=== PATIENT | female | born 1980 | race Caucasian/White ===

== ENCOUNTER 2016-08-06 11:00 | Day surgery (SDC) | payer OTHER ==
[2016-08-06] MEDS ORDERED: fentaNYL 100 MCG/2 ML INJ ONE (11:48)
[2016-08-06] MEDS ORDERED: PROPOFOL/EMULSION 500 MG/50 ML BOTTLE IV ONE (11:49)
[2016-08-06] MEDS ORDERED: LIDOCAINE 2% 5 ML SDV ONE (11:52)
[2016-08-06] MEDS ORDERED: ONDANSETRON 4 MG/2 ML VIAL ONE (11:52)
[2016-08-06] MEDS ORDERED: MIDAZOLAM 2 MG/2 ML VIAL ONE (11:54)
[2016-08-06] MEDS ORDERED: DOXYCYCLINE HYCLATE 100 MG CAP/TAB ONE (12:05)
[2016-08-06 12:15] LABS: % IMMATURE GRANULYOCYTES 0.3 % (0.0-1.1); ABSOLUTE IMMATURE GRANULOCYTES 0.02 10^3/uL (0.00-0.10); ADD DIFF? NO; ADD MORPH? NO; ADD SCAN? NO; ATYPICAL LYMPHOCYTE FLAG 30 (0-99); FRAGMENT RBC FLAG 0 (0-99); HEMATOCRIT 39.1 % (38.0-47.0); HEMOGLOBIN 13.5 g/dL (12.6-16.3); LEFT SHIFT FLG 0 (0-99); LIPEMIA HEMOLYSIS FLAG 90 (0-99); MEAN CELL HEMOGLOBIN 31.1 pg (27.9-34.1); MEAN CELL HEMOGLOBIN CONCENTR. 34.5 g/dL (32.4-36.7); MEAN CELL VOLUME 90.1 fL (81.5-99.8); MEAN PLATELET VOLUME 9.6 fL (8.7-11.7); PLATELET CLUMPS FLAG 30 (0-99); PLATELET COUNT 220 10^3/uL (150-400); RED BLOOD CELL COUNT 4.34 10^6/uL (4.18-5.33); RED CELL DISTRIBUTION WIDTH 13.2 % (11.5-15.2)
[2016-08-06] MEDS ORDERED: LR 1,000 ML IV SCH (12:30)
[2016-08-06] MEDS ORDERED: DOXYCYCLINE INJ 100 MG in NS 250 ML IV ONE (12:30)
[2016-08-06] MEDS ORDERED: IBUPROFEN 600 MG TAB PO ONE (14:00)
--- NOTE | 2016-08-06 20:21 | GOP ---
[f rep st] OPERATIVE REPORT DATE OF OPERATION: 08/06/2016 SURGEON: Dasia Leon MD ANESTHESIA: MAC sedation. ANESTHESIOLOGIST: Roc Wilburn MD. PREOPERATIVE DIAGNOSIS: Missed at 8 weeks' gestation. POSTOPERATIVE DIAGNOSIS: Missed at 8 weeks' gestation. PROCEDURE PERFORMED: Suction dilation and curettage. FINDINGS: SPECIMENS: Pathological specimen would be products of conception. ESTIMATED BLOOD LOSS: Less than 10 cc. INDICATIONS: The patient is a 36-year-old, 3, para 1-0-1-1, who presented for her new OB vis it on 08/04/2016 at 8-2/7 weeks' gestation by last menstrual period. On that evaluation, her ultraso und revealed a gestational sac with a small pole, no heart tones. This was confirmed on the by official ultrasound. The baby was size less than dates by 12 days. The patient had a ge stational yolk sac. No heart tones. The patient was diagnosed with missed , given opt ions of medical management versus surgical management versus expectant. She desired surgical managem ent with a suction dilation and curettage. She was consented for the procedure. She understood the risks and benefits. The risks including ble eding, infection, damage to the uterus, including possible risk of perforation, damage to other organ s if perforation were to occur, incomplete removal of all the tissue with need for repeat procedure o r spontaneous expulsion at the time. She understood these risks and benefits and agreed to proceed. DESCRIPTION OF PROCEDURE: The patient was taken to the operating room where she was given MAC sedati on without difficulty. She was prepped and draped in a dorsal lithotomy position. An open-sided spe culum was placed in the vagina, and a single-tooth tenaculum was used to grasp the anterior lip of th e cervix. The uterus sounded to 8 cm. The cervix was progressively dilated with V[place]la dilators to a #8-1/2. The #8 curved suction curette was then gently advanced from the cervix and advanced to the fundus, and tissue was obtained in several passages. The sharp curettage was then performed in a thuy ckwise fashion until a gritty texture was palpated throughout the entire endometrium. Final pass of the suction device again revealed a small area of bleeding, little tissue. The tenaculum was removed , and the speculum was removed. A transvaginal ultrasound was performed, and a normal endometrial st ripe was visualized. There were no retained products. The patient tolerated the procedure well. Sponge, lap, needle, and instrument counts were correct x2 . Patient went to the recovery room in good condition. /[id number]/MODL
== END 2016-08-06 14:34 | disposition home or self-care (01) ==
LOC: FOBOP 11:00
PROVIDERS: ATTEND Obstetrics & Gynecology
PROC: 10D17ZZ Extraction of Products of Conception, Retained, Via Natural or Artificial Opening (ICD-10-PCS; principal; 2016-08-06)
DX: O02.1 Missed abortion (principal)
CPT/HCPCS: J2250; J2405; J2704; J3010

== ENCOUNTER 2016-08-11 13:45 | Emergency (ER) | payer OTHER ==
[2016-08-11 13:49] VITALS: RESP 16; O2SAT 98
[2016-08-11] MEDS ORDERED: NS 1,000 ML IV ONE (15:05)
[2016-08-11] MEDS ORDERED: ONDANSETRON 4 MG/2 ML VIAL IVP ONE (15:05)
[2016-08-11 15:28] LABS: % IMMATURE GRANULYOCYTES 0.7 % (0.0-1.1); ABSOLUTE IMMATURE GRANULOCYTES 0.07 10^3/uL (0.00-0.10); ADD DIFF? NO; ADD MORPH? NO; ADD SCAN? NO; ATYPICAL LYMPHOCYTE FLAG 10 (0-99); FRAGMENT RBC FLAG 0 (0-99); HEMATOCRIT 44.7 % (38.0-47.0); HEMOGLOBIN 15.2 g/dL (12.6-16.3); LEFT SHIFT FLG 0 (0-99); LIPEMIA HEMOLYSIS FLAG 90 (0-99); MEAN CELL HEMOGLOBIN 31.2 pg (27.9-34.1); MEAN CELL VOLUME 91.8 fL (81.5-99.8); MEAN PLATELET VOLUME 9.6 fL (8.7-11.7); PLATELET CLUMPS FLAG 30 (0-99); PLATELET COUNT 272 10^3/uL (150-400); RED BLOOD CELL COUNT 4.87 10^6/uL (4.18-5.33); RED CELL DISTRIBUTION WIDTH 13.3 % (11.5-15.2)
[2016-08-11 15:33] LABS: ANION GAP 13 mEq/L (8-16); CALCIUM 9.2 mg/dL (8.5-10.4); CARBON DIOXIDE 24 mEq/l (22-31); CHLORIDE 104 mEq/L (97-110); CREATININE 0.8 mg/dL (0.6-1.0); GLOMERULAR FILTRATION RATE > 60; GLUCOSE 79 mg/dL (70-100); POTASSIUM 4.1 mEq/L (3.5-5.2); SODIUM 141 mEq/L (134-144)
--- NOTE | 2016-08-11 15:52 | EDPHY ---
H & P Time Seen by Provider: 08/11/16 14:55 HPI/ROS: CHIEF COMPLAINT: Abdominal pain HISTORY OF PRESENT ILLNESS: 36-year-old female presents to the emergency department by private vehicle complaining of right lower quadrant abdominal pain. The patient had a D and C on Tuesday, [address] Dasia Leon. The patient was doing well until 2 days ago started getting sharp pain in her right lower quadrant of her abdomen. This has been constant over last [address] Dasia Loen today and had a pelvic ultrasound as well as abdominal ultrasound which revealed a small known right ovarian cyst. She was sent to the emergency department for possible acute appendicitis. The patient has felt nauseous although no vomiting. No diarrhea. No fevers or chills. No urinary symptoms. The patient states that she is not . REVIEW OF SYSTEMS: Constitutional: No fever, no chills. Eyes: No double or blurry vision. ENT: No sore throat. Respiratory: No cough, no shortness of breath. Cardiac: No chest pain. Gastrointestinal: Abdominal pain as above. No vomiting or diarrhea. Genitourinary: No dysuria. Musculoskeletal: No neck or back pain. Skin: No rashes. Neurological: No headache. Past Medical/Surgical History: Ectopic , spontaneous miscarriage requiring D and C on Tuesday, August 06 Social History: and lives in [place]. 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 Smoking Status: Never smoked Physical Exam: General Appearance: Alert, no distress. Afebrile. Nontoxic appearing. Eyes: Pupils equal and round. Extraocular motions are all intact. ENT: Mouth: Mucous membranes moist. Respiratory: No wheezing, rhonchi, or rales, lungs are clear to auscultation. Cardiovascular: Regular rate and rhythm. Gastrointestinal: Abdomen is soft. She has tenderness with palpation in the right lower quadrant. She has some voluntary guarding. No rebound tenderness. Mild CVA tenderness on the right, none on the left. Neurological: Alert and oriented x 3, cranial nerves II through XII grossly intact Skin: Warm and dry, no rashes. Musculoskeletal: Nontender to palpate along the cervical, thoracic or lumbar spine. Neck is supple. Extremities: Full range of motion and no peripheral edema. Psychiatric: Patient is oriented X 3, there is no agitation. Constitutional: Initial Vital Signs Temperature (C) 36.8 C 08/11/16 13:47 Heart Rate 58 L 08/11/16 13:47 Respiratory Rate 16 08/11/16 13:47 Blood Pressure 104/70 08/11/16 13:47 O2 Sat (%) 98 08/11/16 13:47 O2 Delivery Mode Room Air Allergies/Adverse Reactions: erythromycin base [Erythromycin Base] Allergy (Verified 01/09/14 16:25) Home Medications: Medication Instructions Recorded Fish Oil 1 cap PO BID 01/09/14 Plus Multivitamin Tab 1 tab PO DAILY 01/09/14 Docusate Sodium [Colace 100 MG (*)] 100 mg PO BID 08/06/16 Medical Decision Making - Diagnostics Imaging: CT imaging of the abdomen pelvis reveals a normal appearing appendix. Moderate stool noted in the colon. No evidence of obstruction. No kidney injury noted. This is reported to me by Dr. Beaulieu. ED Course/Re-evaluation: 36-year-old female presents with abdominal pain and concerns about acute appendicitis. Laboratory studies were drawn which reveals white blood cell count of 9.85. Her chemistries are unremarkable. Her HCG is positive which is likely residual from her recent D and C. The patient states that she is not . The patient just came from Dr. Dasia Leon office and had a pelvic ultrasound. CT imaging of the abdomen and pelvis reveals normal appendix. Constipation otherwise normal. Patient was given IV Toradol with mild improvement. She is comfortable being discharged home. She was advised to return if she develops fever, vomiting or any other concerns. Differential Diagnosis: Including but not limited to acute appendicitis, urinary tract infection, pyelonephritis, kidney stone, retained products of conception - Data Points Laboratory Results: Laboratory Results 08/11/16 14:45 08/11/16 14:45 08/11/16 14:45 WBC 9.85 H 10^3/uL (3.80-9.50) RBC 4.87 10^6/uL (4.18-5.33) Hgb 15.2 g/dL (12.6-16.3) Hct 44.7 % (38.0-47.0) MCV 91.8 fL (81.5-99.8) MCH 31.2 pg (27.9-34.1) MCHC 34.0 g/dL (32.4-36.7) RDW 13.3 % (11.5-15.2) Plt Count 272 10^3/uL (150-400) MPV 9.6 fL (8.7-11.7) Neut % (Auto) 53.8 % (39.3-74.2) Lymph % (Auto) 37.9 % (15.0-45.0) [place] % (Auto) 5.8 % (4.5-13.0) Eos % (Auto) 1.1 % (0.6-7.6) Baso % (Auto) 0.7 % (0.3-1.7) Nucleat RBC Rel Count 0.0 % (0.0-0.2) Absolute Neuts (auto) 5.30 10^3/uL (1.70-6.50) Absolute Lymphs (auto) 3.73 H 10^3/uL (1.00-3.00) Absolute Monos (auto) 0.57 10^3/uL (0.30-0.80) Absolute Eos (auto) 0.11 10^3/uL (0.03-0.40) Absolute Basos (auto) 0.07 10^3/uL (0.02-0.10) Absolute Nucleated RBC 0.00 10^3/uL (0-0.01) Immature Gran % 0.7 % (0.0-1.1) Immature Gran # 0.07 10^3/uL (0.00-0.10) Sodium 141 mEq/L (134-144) Potassium 4.1 mEq/L (3.5-5.2) Chloride 104 mEq/L (97-110) Carbon Dioxide 24 mEq/l (22-31) Anion Gap 13 mEq/L (8-16) BUN 15 mg/dL (7-23) Creatinine 0.8 mg/dL (0.6-1.0) Estimated GFR > 60 Glucose 79 mg/dL (70-100) Calcium 9.2 mg/dL (8.5-10.4) Beta HCG, Qual POSITIVE Medications Given: Discontinued Medications Sodium Chloride (Ns) 1,000 mls @ 0 mls/hr IV ONCE ONE PRN Reason: Wide Open Stop: 08/11/16 15:06 Last Admin: 08/11/16 15:27 Dose: 1,000 mls Ketorolac Tromethamine (Toradol) 30 mg IVP EDNOW ONE Stop: 08/11/16 16:38 Last Admin: 08/11/16 16:49 Dose: 30 mg Ondansetron HCl (Zofran) 4 mg IVP EDNOW ONE Stop: 08/11/16 15:06 Last Admin: 08/11/16 15:28 Dose: 4 mg Departure - Departure Disposition: Home, Routine, Self-Care Clinical Impression: Abdominal pain Qualifiers: Abdominal location: right lower quadrant Qualifier Code: (R10.31) Right lower quadrant pain Condition: Good Instructions: Acute Abdominal Pain (ED) Additional Instructions: Abdominal Pain: Return to the Emergency Department immediately for increasing pain, fever, vomiting, or if not completely better in 8-12 hours. Referrals: Logan Emanuel MD [Primary Care Provider] - As per Instructions
[2016-08-11] MEDS ORDERED: IOPAMIDOL (ISOVUE-300) 100 ML BTL IV ONE (15:55)
[2016-08-11] MEDS ORDERED: KETOROLAC 30 MG/1 ML SDV IVP ONE (16:37)
--- NOTE | 2016-08-11 16:39 | CT ---
CT Scan of the Abdomen and Pelvis (With Contrast) at 1614 hours History: Right lower quadrant pain. Technique: Axial computed tomographic images of the abdomen and pelvis were obtained with the unevent ful intravenous administration of 90 mL Isovue-300 contrast. No oral or rectal contrast which limits the study. Dose reduction techniques were utilized. CT Abdomen Findings: Lung bases: Normal. Liver: Normal. Biliary system: No obstruction. Spleen: Normal. Pancreas: Normal. Adrenals: Normal. Kidneys: No obstruction or solid masses.. Abdominal Aorta: No aneurysm. No bowel obstruction, ascites, or significant retroperitoneal lymphadenopathy. CT Pelvis Findings: Appendix appears normal without inflammatory changes. Right ovarian 14 mm dominan t follicle. No significant free fluid in the pelvis. Moderate stool in the colon. Impression: 1. Mild constipation. 2. No CT evidence of appendicitis, abscess or bowel obstruction. Findings and recommendations discussed with Emergency Department physician, Meenu Neal PA-C at 16 35 hour, today. Final report concurs with initial preliminary interpretation.
[2016-08-11 17:42] VITALS: BP 102/68; PULSE 55; TEMP 98.1
== END 2016-08-11 17:41 | disposition home or self-care (01) ==
DX: R10.31 Right lower quadrant pain (principal)
CPT/HCPCS: 96374; J1885; J2405; Q9967

== ENCOUNTER 2016-09-24 10:36 | Emergency (ER) | payer OTHER ==
[2016-09-24 10:42] VITALS: BP 106/68; PULSE 71; RESP 16; TEMP 97.5; O2SAT 97
[2016-09-24] MEDS ORDERED: IBUPROFEN 200 MG TAB PO ONE (10:53)
[2016-09-24] MEDS ORDERED: ONDANSETRON DISINTEGRATING 4 MG TAB PO ONE (10:53)
[2016-09-24] MEDS ORDERED: oxyCODONE IR 5 MG TAB PO ONE (10:53)
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
== END 2016-09-24 12:37 | disposition home or self-care (01) ==
PROC: 0HQLXZZ Repair Left Lower Leg Skin, External Approach (ICD-10-PCS; principal; 2016-09-24)
DX: S81.812A Laceration without foreign body, left lower leg, initial encounter (principal); V18.4XXA Pedal cycle driver injured in noncollision transport accident in traffic accident, initial encounter; Y92.410 Unspecified street and highway as the place of occurrence of the external cause; Y99.8 Other external cause status; Y93.89 Activity, other specified

== ENCOUNTER 2018-06-22 16:30 | Day surgery (SDC) | payer OTHER ==
[2018-06-22] MEDS ORDERED: METHOTREXATE 25 MG/ML SYRINGE IM ONE (16:54)
== END 2018-06-22 17:33 | disposition home or self-care (01) ==
LOC: FOBOP 16:30
PROVIDERS: ATTEND Hospitalist
DX: O00.90 Unspecified ectopic pregnancy without intrauterine pregnancy (principal)
CPT/HCPCS: J9250